=== PATIENT | male | born 1995 | race African-American/Black ===

== ENCOUNTER 2020-06-07 13:26 | Emergency (ER) | payer OTHER ==
[2020-06-07] MEDS ORDERED: NORMAL SALINE 1000 ML 1,000 ML IV ONE ×2 (14:47→16:38)
--- NOTE | 2020-06-07 14:52 | ER Document Report ---
ED Medical Screen (RME) - General Chief Complaint: High Blood Sugar Stated Complaint: HIGH BLOOD SUGAR/BLURRED VISION/FREQUENT URINATION Time Seen by Provider: 06/07/20 14:44 Mode of Arrival: Ambulatory Information source: Patient Notes: 25-year-old male presented to ED for blurred vision frequent urination, thirst, elevated blood sugar. He states that his father is friend is a diabetic he checked his blood sugar today was 589. He states he has had trouble with BMs constantly thirsty and going to the bathroom for several days. He states he does drink alcohol daily usually about 5 beers a day. He has not had any medical history as of yet. He states he has been severely fatigued recently. I have informed the charge nurse of this patient as well as ordered a DKA work-up and fluids. I have asked the charge nurse please to get a room immediately and have asked for an Accu-Chek immediately. I have greeted and performed a rapid initial assessment of this patient. A comprehensive ED assessment and evaluation of the patient, analysis of test results and completion of medical decision making process will be conducted by an additional ED providers. Physical Exam - Vital signs Vitals: Temp Pulse Resp BP Pulse Ox 98.7 F 92 16 145/96 H 98 06/07/20 14:32 06/07/20 14:32 06/07/20 14:32 06/07/20 14:32 06/07/20 14:32 Course - Vital Signs Vital signs: Temp Pulse Resp BP Pulse Ox 98.7 F 92 16 145/96 H 98 06/07/20 14:32 06/07/20 14:32 06/07/20 14:32 06/07/20 14:32 06/07/20 14:32
[2020-06-07 15:48] LABS: ABSOLUTE MONOCYTES (AUTO) 0.5 10^3/uL (0.1-1.4); ABSOLUTE NEUT (AUTO) 2.9 10^3/uL (1.7-8.2); BASOPHILS % (AUTO) 0.9 % (0-2); EOSINOPHILS % (AUTO) 0.9 % (0-6); HEMATOCRIT 46.8 % (37.9-51.0); HEMOGLOBIN 15.6 g/dL (13.5-17.0); LYMPHOCYTES % (AUTO) 36.4 % (13-45); MEAN CORPUSCULAR HEMOGLOBIN 26.5 pg (27.0-33.4); MEAN CORPUSCULAR HGB CONC 33.3 g/dL (32.0-36.0); MEAN CORPUSCULAR VOLUME 80 fl (80-97); MONOCYTES % (AUTO) 9.3 % (3-13); PLATELET COUNT 228 10^3/uL (150-450); RED BLOOD COUNT 5.87 10^6/uL (4.35-5.55); RED CELL DISTRIBUTION WIDTH 12.5 % (11.5-14.0); SEGMENTED NEUTROPHILS % (AUTO) 52.5 % (42-78); TOTAL CELLS COUNTED % (AUTO) 100 %; WHITE BLOOD COUNT 5.6 10^3/uL (4.0-10.5)
[2020-06-07 15:50] LABS: VENOUS BLOOD BASE EXCESS 3.4 mmol/L; VENOUS BLOOD HCO3 31.2 mmol/L (20-32); VENOUS BLOOD PCO2 59.9 mmHg (35-63); VENOUS BLOOD PH 7.33 (7.30-7.42)
[2020-06-07 15:53] LABS: APPEARANCE,URINE CLEAR; BILIRUBIN,URINE NEGATIVE (NEGATIVE); COLOR,URINE YELLOW; GLUCOSE, URINE >=500 mg/dL (NEGATIVE); KETONES,URINE 20 mg/dL (NEGATIVE); LEUKOCYTE ESTERASE,URINE NEGATIVE (NEGATIVE); NITRITE,URINE NEGATIVE (NEGATIVE); PROTEIN,URINE 100 mg/dL (NEGATIVE); URINE SPECIFIC GRAVITY 1.043; UROBILINOGEN,URINE NEGATIVE mg/dL (<2.0)
[2020-06-07 16:06] LABS: URINE AMPHETAMINES SCREEN NEGATIVE; URINE BARBITURATES SCREEN NEGATIVE; URINE BENZODIAZEPINES SCREEN NEGATIVE; URINE COCAINE SCREEN NEGATIVE; URINE MARIJUANA (THC) SCREEN NEGATIVE; URINE METHADONE SCREEN NEGATIVE; URINE PHENCYCLIDINE SCREEN NEGATIVE
[2020-06-07 16:10] LABS: ALBUMIN 5.3 g/dL (3.5-5.0); ALKALINE PHOSPHATASE 100 U/L (38-126); ANION GAP 13 (5-19); ASPARTATE AMINO TRANSFERASE 45 U/L (17-59); BILIRUBIN,DIRECT 0.3 mg/dL (0.0-0.4); BILIRUBIN,TOTAL 1.4 mg/dL (0.2-1.3); BLOOD UREA NITROGEN 18 mg/dL (7-20); CALCIUM 10.8 mg/dL (8.4-10.2); CARBON DIOXIDE 30 mmol/L (22-30); CHLORIDE 94 mmol/L (98-107); CREATINE KINASE 193 U/L (55-170); POTASSIUM 4.6 mmol/L (3.6-5.0); TOTAL PROTEIN 9.6 g/dL (6.3-8.2)
[2020-06-07 16:12] LABS: ALCOHOL < 10 mg/dL (NONE DETECTED)
[2020-06-07 16:23] LABS: GLUCOSE 424 mg/dL (75-110)
--- NOTE | 2020-06-07 16:41 | ER Document Report ---
ED General - General Chief Complaint: High Blood Sugar Stated Complaint: HIGH BLOOD SUGAR/BLURRED VISION/FREQUENT URINATION Time Seen by Provider: 06/07/20 14:44 Mode of Arrival: Ambulatory Notes: This 25-year-old man presents to the emergency department with a 3-week history increased urinary output and increased thirst. He states that the symptoms have worsened over the past few days and he has had a drowsiness and dizziness after eating the other evening. He has been getting up 8-10 times at night to urinate. And because of those symptoms he went to a friend's home who measured his blood sugar and found it to be as high as 550. He was told he needed to go to the emergency department and get medical care. There is diabetes in the family he is otherwise healthy male and has no other medical problems. - Related Data Allergies/Adverse Reactions: beef derived (bovine) Allergy (Verified 06/07/20 17:17) Past Medical History - General Information source: Patient - Social History Smoking Status: Unknown if Ever Smoked Family History: Reviewed & Not Pertinent Review of Systems - Review of Systems Notes: Constitutional: Negative for fever. HENT: Negative for sore throat. Eyes: Negative for visual changes. Cardiovascular: Negative for chest pain. Respiratory: Negative for shortness of breath. Gastrointestinal: Negative for abdominal pain, vomiting or diarrhea. Genitourinary: See HPI Musculoskeletal: Negative for back pain. Skin: Negative for rash. Neurological: + Dizziness, + weakness 10 point ROS negative except as marked above and in HPI. Physical Exam - Vital signs Vitals: Temp Pulse Resp BP Pulse Ox 98.7 F 92 16 145/96 H 98 06/07/20 14:32 06/07/20 14:32 06/07/20 14:32 06/07/20 14:32 06/07/20 14:32 - Notes Notes: PHYSICAL EXAMINATION: Physical Exam: General: Well-nourished well-developed 25-year-old male in no acute distress HEENT: NC/AT, pupils equal round and reactive to light, MM moist,nares clear, oropharynx clear, airway patent Neck: supple, no adenopathy, no masses. Good range of motion Lungs: clear, no wheezing, no rales no rhonchi CVS: Regular rate and rhythm no murmur gallop or rub Abdomen: Soft, active, nontender, no masses, no hepatosplenomegaly Ext: No edema, clubbing or cyanosis. Neuro: Alert and responsive, moving all 4 extremities on command, cranial nerves intact, no focal findings Skin: Intact no open lesions, no rash PSYCH: Normal mood, normal affect. Course - Re-evaluation Re-evalutation: 06/07/20 18:51 Patient is found to have a hemoglobin A1c of 8.9. I have discussed with the patient and his mother the fact that he has diabetes mellitus and will need to have follow-up plan. 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 I am giving him a prescription today for Metformin 500 mg twice daily I will have him to reduce his carbohydrate intake as well as raw sugars and sweet drinks. He is to follow-up and get a monitor and strips to monitor his blood sugar and have the medications adjusted as needed. The patient acknowledges understanding of this plan as well as his mom who was in the room at the time of this discussion. - Vital Signs Vital signs: Temp Pulse Resp BP Pulse Ox 98.7 F 92 16 145/96 H 98 06/07/20 14:32 06/07/20 14:32 06/07/20 14:32 06/07/20 14:32 06/07/20 14:32 - Laboratory Results Result Diagrams: 06/07/20 15:14 06/07/20 15:14 Laboratory Results Interpreted: 06/07/20 06/07/20 06/07/20 15:14 15:14 15:14 RBC 5.87 H MCH 26.5 L Chloride 94 L Glucose 424 H* POC Glucose Hemoglobin A1c % Calcium 10.8 H Total Bilirubin 1.4 H ALT 66 H Creatine Kinase 193 H Total Protein 9.6 H Albumin 5.3 H Urine Protein 100 H Urine Glucose (UA) >=500 H Urine Ketones 20 H 06/07/20 06/07/20 15:14 15:15 RBC MCH Chloride Glucose POC Glucose 369 H Hemoglobin A1c % 8.9 H Calcium Total Bilirubin ALT Creatine Kinase Total Protein Albumin Urine Protein Urine Glucose (UA) Urine Ketones 06/07/20 16:40 I have reviewed laboratory data and used this information for the treatment dec isions regarding the patient. Critical Laboratory Results Reviewed: Yes Attending or Supervising Physician who Reviewed Labs: NAILA CHAHAL - Radiology Results Critical Radiology Results Reviewed: No Critical Results Discharge - Discharge Clinical Impression: New onset type 2 diabetes mellitus Condition: Good Disposition: HOME, SELF-CARE Instructions: Diabetes ([facility]) Additional Instructions: You are seen in the emergency department today with elevated blood sugar and a preceding course of symptoms that represent the onset of diabetes mellitus. Please avoid sugary drinks and excessive sugar calories. Increase your protein intake and decrease her carbohydrate intake while using the medications. Please follow-up with a primary provider who can provide you with a monitor, strips and adjust medications as needed. You are given a prescription for Metformin 500 mg twice a day. Symptoms are worsening or if you have other concerns you may return to the emergency department for further evaluation and treatment HOME CARE INSTRUCTIONS & INFORMATION: Thank you for choosing us for your medical needs. We hope you're satisfied with the care you received. After you leave, you must properly care for your problem and, at the same time, observe its progress. Any condition can change. Some illnesses can change rapidly over hours or days. If your condition worsens, return to the Emergency Department or see your physician promptly. ABOUT YOUR X-RAYS AND EKG'S: If you had an EKG or X-rays taken, they have been read by the Emergency Physician. The X-rays and EKG's will also be read by a Radiologist or Telecom Field Technician within 24 hours. If discrepancies are noted, you will be notified by telephone. Please be certain the ED has a correct telephone number & address where you can be reached. Also, realize that some fractures or abnormalities do not show up on initial X-rays. If your symptoms continue, see your physician. ABOUT YOUR LABORATORY TEST: If you had laboratory tests, the results have been reviewed by the Emergency Physician. Some test results (for example cultures) may not be available for several days. You will be contacted if any test result shows you need additional treatment. Please be certain the ED has a correct telephone number and address where you can be reached. ABOUT YOUR MEDICATIONS: You will receive instructions on how to take your medicine on the prescription label you receive. Additional information may be provided by the Pharmacy. If you have questions afterwards, call the ED for clarification or further instructions. Some prescribed medications may cause drowsiness. Do not perform tasks such as driving a car or operating machinery without consulting your Pharmacist. If you feel you need a refill of pain medication, your condition will need re-evaluation. Please do not call for a refill of any medication. ABOUT YOUR SIGNATURE: Signature of this document acknowledges to followin. Understanding that you received emergency treatment and that you may be r eleased before al medical problems are known or treated. Please be certain the ED has a correct phone number & address where you can be reached. 2. Acknowledgement that you will arrange for follow-up care as recommended. 3. Authorization for the Emergency Physician to provide information to your follow-up Physician in order to maximize your care. AT ANY TIME, IF YOUR SYMPTOMS CHANGE SIGNIFICANTLY OR WORSEN OR YOU DEVELOP NEW SYMPTOMS, RETURN TO THE EMERGENCY DEPARTMENT IMMEDIATELY FOR RE-EVALUATION. OUR GOAL IS TO PROVIDE EXCELLENT MEDICAL CARE! WE HOPE THAT WE HAVE MET YOUR EXPECTATIONS DURING YOUR EMERGENCY DEPARTMENT VISIT AND THAT YOU FEEL YOU HAVE RECEIVED EXCELLENT CARE! Prescriptions: Metformin HCl [Glucophage 500 mg Tablet] 500 mg PO BID #60 tablet
[2020-06-07 19:14] VITALS: BP 135/96
== END 2020-06-07 19:26 | disposition home or self-care (01) ==
LOC: ER 13:26
DX: E11.65 Type 2 diabetes mellitus with hyperglycemia (principal); H53.8 Other visual disturbances; R35.0 Frequency of micturition; R42 Dizziness and giddiness; R53.1 Weakness
CPT/HCPCS: 99284; 96360; 36415; 82962; 80307 ×2; 82550; 85025; 80053; 81001; 83036; 82803; J7030